=== PATIENT | male | born 1940 | race Caucasian/White ===

== ENCOUNTER 2018-09-23 13:35 | Outpatient (CLI) | payer OTHER | END 2018-09-23 13:47 | disposition home or self-care (01) | LOC: MRI 13:35 | DX: R41.3 Other amnesia (principal) | CPT/HCPCS: 70551 ==

== ENCOUNTER 2018-12-02 14:25 | Outpatient (CLI) | payer OTHER | END 2018-12-02 14:41 | disposition home or self-care (01) | LOC: SONOGRAMA 14:25 | DX: E06.0 Acute thyroiditis (principal) ==

== ENCOUNTER 2019-01-27 08:11 | Outpatient (CLI) | payer OTHER | END 2019-01-27 08:17 | disposition home or self-care (01) | LOC: SONOGRAMA 08:11 | DX: E04.1 Nontoxic single thyroid nodule (principal) ==

== ENCOUNTER 2019-02-03 08:18 | Emergency (ER) | payer OTHER ==
[~2019-02-03] VITALS: Ht 172.7 cm; Wt 103.0 kg
[2019-02-03] MEDS ORDERED: RISPERDAL1 MG ×2 (08:25→08:26)
[2019-02-03] MEDS ORDERED: ZOLOFT50 MG (08:25)
[2019-02-03] MEDS ORDERED: RESTORIL30 M1 (08:25)
== END 2019-02-03 18:33 | disposition home or self-care (01) ==
LOC: ER 08:18 → CPU-OBS 08:19 → ER 18:33
DX: R07.89 Other chest pain (principal)

== ENCOUNTER 2019-04-25 13:37 | Outpatient (CLI) | payer OTHER ==
[~2019-04-25 13:37] MED LIST: RESTORIL30 M1; RISPERDAL1 MG; ZOLOFT50 MG
== END 2019-04-25 13:40 | disposition home or self-care (01) ==
LOC: SONOGRAMA 13:37
DX: N40.1 Benign prostatic hyperplasia with lower urinary tract symptoms (principal); R33.8 Other retention of urine

== ENCOUNTER 2020-12-03 16:17 | Outpatient (CLI) | payer OTHER | END 2020-12-03 19:00 | disposition home or self-care (01) | LOC: LAB 16:17 | PROVIDERS: ATTEND Internal Medicine Hematology & Oncology | DX: D50.8 Other iron deficiency anemias (principal); R79.89 Other specified abnormal findings of blood chemistry; I10 Essential (primary) hypertension; R74.02 Elevation of levels of lactic acid dehydrogenase [LDH]; K76.89 Other specified diseases of liver; E55.9 Vitamin D deficiency, unspecified; D51.1 Vitamin B12 deficiency anemia due to selective vitamin B12 malabsorption with proteinuria; D51.0 Vitamin B12 deficiency anemia due to intrinsic factor deficiency; E03.8 Other specified hypothyroidism; E06.3 Autoimmune thyroiditis; R97.0 Elevated carcinoembryonic antigen [CEA]; R97.8 Other abnormal tumor markers; R97.20 Elevated prostate specific antigen [PSA]; D51.3 Other dietary vitamin B12 deficiency anemia; K29.70 Gastritis, unspecified, without bleeding; J32.4 Chronic pansinusitis ==

== ENCOUNTER 2021-01-14 08:25 | Outpatient (CLI) | payer OTHER | END 2021-01-14 08:31 | disposition home or self-care (01) | LOC: RAD 08:25 → RX STUDY 10:00 | PROVIDERS: ATTEND Internal Medicine Hematology & Oncology | DX: E04.2 Nontoxic multinodular goiter (principal); E03.8 Other specified hypothyroidism; K22.8 Other specified diseases of esophagus; D51.3 Other dietary vitamin B12 deficiency anemia; I10 Essential (primary) hypertension; J32.4 Chronic pansinusitis; R13.19 Other dysphagia ==

== ENCOUNTER → 2021-01-14 10:18 | Outpatient (CLI) | payer OTHER | END | disposition home or self-care (01) | LOC: LAB 10:18 | PROVIDERS: ATTEND Internal Medicine Hematology & Oncology | DX: D51.3 Other dietary vitamin B12 deficiency anemia (principal) ==

== ENCOUNTER 2021-01-21 11:47 | Outpatient (CLI) | payer OTHER | END 2021-01-21 11:51 | disposition home or self-care (01) | LOC: SONOGRAMA 11:47 | PROVIDERS: ATTEND Pathology Anatomic Pathology & Clinical Pathology | DX: D34 Benign neoplasm of thyroid gland (principal); E03.8 Other specified hypothyroidism; E04.8 Other specified nontoxic goiter ==

== ENCOUNTER 2021-02-19 08:00 | Outpatient (CLI) | payer OTHER | END 2021-02-19 08:30 | disposition home or self-care (01) | LOC: PPH VACUNA 08:00 | PROVIDERS: ATTEND Emergency Medicine Pediatric Emergency Medicine | DX: Z23 Encounter for immunization (principal) ==

== ENCOUNTER 2021-08-22 10:08 | Outpatient (CLI) | payer OTHER | END 2021-08-22 10:17 | disposition home or self-care (01) | LOC: TOM 10:08 | PROVIDERS: ATTEND Internal Medicine Cardiovascular Disease | DX: I61.9 Nontraumatic intracerebral hemorrhage, unspecified (principal) ==

== ENCOUNTER 2022-10-31 09:39 | Emergency (ER) | payer OTHER ==
[~2022-10-31] VITALS: Ht 177.8 cm; Wt 81.6 kg
[2022-10-31] MEDS ORDERED: ZINC 15 MG LOZE15 MG (09:51)
[2022-10-31] MEDS ORDERED: TAMSULOSIN PO (09:52)
[2022-10-31] MEDS ORDERED: VITAMIN C WIT1000 M2 PO (09:52)
[2022-10-31] MEDS ORDERED: HYDRALAZINE HCL50 MG PO (09:52)
[2022-10-31] MEDS ORDERED: ATORVASTATIN CA40 MG PO (09:53)
[2022-10-31] MEDS ORDERED: DEPAKOTE SPRIN125 MG PO (09:53)
[2022-10-31] MEDS ORDERED: TRAZODONE HCL50 MG PO (09:53)
[2022-10-31] MEDS ORDERED: ATIVAN0.5 M1 PO (09:53)
== END 2022-10-31 18:51 | disposition home or self-care (01) ==
LOC: ER 09:39
DX: N39.0 Urinary tract infection, site not specified (principal); Z88.6 Allergy status to analgesic agent; G30.8 Other Alzheimer's disease; F02.80 Dementia in other diseases classified elsewhere, unspecified severity, without behavioral disturbance, psychotic disturbance, mood disturbance, and anxiety; B96.29 Other Escherichia coli [E. coli] as the cause of diseases classified elsewhere; Z16.11 Resistance to penicillins